=== PATIENT | male | born 1980 | race Caucasian/White ===

== ENCOUNTER 2019-07-18 17:16 | Emergency (ER) | payer SELFPAY ==
[2019-07-18] MEDS ORDERED: Ibuprofen 800 MG TAB ONE (17:40)
[2019-07-18] MEDS ORDERED: Acetaminophen 500 MG TAB ONE (17:40)
[2019-07-18] MEDS ORDERED: Benzonatate 100 MG CAP ONE (17:40)
[2019-07-18] MEDS ORDERED: Oseltamivir 75 MG CAP ONE (17:59)
== END 2019-07-18 18:10 | disposition home or self-care (01) ==
LOC: MADERS 17:16
DX: J10.1 Influenza due to other identified influenza virus with other respiratory manifestations (principal)
CPT/HCPCS: 87804; 99283

== ENCOUNTER 2019-07-22 15:27 | Emergency (ER) | payer SELFPAY ==
[2019-07-22] MEDS ORDERED: Sodium Chloride 0.9% 1,000 ML ONE (15:54)
[2019-07-22] MEDS ORDERED: Ibuprofen 600 MG TAB ONE (15:54)
[2019-07-22] MEDS ORDERED: Ondansetron PF 4 MG/2 ML Vial ONE (15:54)
--- NOTE | 2019-07-22 16:00 | RAD ---
EXAM: Chest 2 views: HISTORY: Cough COMPARISON: 12/11/2005 FINDINGS: There is a normal-sized cardiomediastinal silhouette. There is no evidence of consolidation, mass, or pleural effusion. The bones are unremarkable. IMPRESSION: No evidence of acute cardiopulmonary disease
[2019-07-22 16:11] LABS: #Lymphocytes 1.3 thou/uL (1.20-3.40); #Monocytes 0.8 thou/uL (0.11-0.59); #Neutrophils 9.4 thou/uL (1.40-6.50); %Basophils 0.2 % (0.0-1.0); %Lymphocytes 11.6 % (21.0-51.0); %Monocytes 6.8 % (0.0-10.0); %Neutrophils 81.5 % (42.0-75.0); Hemoglobin 15.8 g/dL (14.0-18.0); Mean Corpuscular HGB CONC 32.4 g/dL (32.0-36.0); Mean Corpuscular Hemoglobin 27.9 pg (27.0-31.0); Mean Corpuscular Volume 86.3 fL (78.0-98.0); Mean Platelet Volume 7.1 fL (7.4-10.4); Platelet Count 232 thou/uL (130-400); RBC Distribution Width 10.7 % (11.5-14.5); Red Blood Cell (RBC) Count 5.65 mill/uL (4.70-6.10); White Blood Cell (WBC) Count 11.6 thou/uL (4.8-10.8)
[2019-07-22 16:21] LABS: Anion Gap 16 mmol/L (10-20); BUN (Urea Nitrogen) 12 mg/dL (8.9-20.6); Calc. Creatinine Clearance 0 mL/min (70-130); Calcium 9.4 mg/dL (7.8-10.44); Carbon Dioxide 27 mmol/L (22-29); Chloride 97 mmol/L (98-107); Estimated GFR-MDRD Greater than 90; Glucose 99 mg/dL (70-105); Potassium 3.5 mmol/L (3.5-5.1); Sodium 136 mmol/L (136-145)
== END 2019-07-22 16:40 | disposition home or self-care (01) ==
LOC: MADERS 15:27
DX: R11.2 Nausea with vomiting, unspecified (principal); R05 Cough
CPT/HCPCS: 71046; 80048; 85025; 96361; 96374; J2405; J7050

== ENCOUNTER 2019-07-26 20:28 | Emergency (ER) | payer SELFPAY ==
[2019-07-26] MEDS ORDERED: Ketorolac Tromethamine 30 MG/ML VIAL ONE (21:15)
[2019-07-26] MEDS ORDERED: Sodium Chloride 0.9% 1,000 ML ONE (21:15)
[2019-07-26 21:30] LABS: Hemoglobin 13.9 g/dL (14.0-18.0); Mean Corpuscular HGB CONC 32.2 g/dL (32.0-36.0); Mean Corpuscular Hemoglobin 28.3 pg (27.0-31.0); Mean Corpuscular Volume 87.8 fL (78.0-98.0); Mean Platelet Volume 6.4 fL (7.4-10.4); Platelet Count 380 thou/uL (130-400); RBC Distribution Width 11.2 % (11.5-14.5); Red Blood Cell (RBC) Count 4.93 mill/uL (4.70-6.10); White Blood Cell (WBC) Count 10.4 thou/uL (4.8-10.8)
[2019-07-26 21:48] LABS: ALT (SGPT) 38 U/L (8-55); AST (SGOT) 23 U/L (5-34); Albumin 3.6 g/dL (3.5-5.0); Alkaline Phosphatase 73 U/L (40-110); Anion Gap 18 mmol/L (10-20); BUN (Urea Nitrogen) 8 mg/dL (8.9-20.6); Bilirubin, Total 0.8 mg/dL (0.2-1.2); Calc. Creatinine Clearance 0 mL/min (70-130); Calcium 9.4 mg/dL (7.8-10.44); Carbon Dioxide 28 mmol/L (22-29); Chloride 96 mmol/L (98-107); Estimated GFR-MDRD Greater than 90; Globulin 3.7 g/dL (2.4-3.5); Glucose 81 mg/dL (70-105); Protein, Total 7.3 g/dL (6.0-8.3); Sodium 139 mmol/L (136-145)
[2019-07-26 22:00] LABS: Band 7 % (5-11); Lymphocytes 17 % (21-51); MDiff Complete? YES; Metamyelocyte 4 % (0-0); Monocytes 8 % (0-10); Neutrophil 64 % (42-75); Nucleated RBC 1 % (0); Platelet Morphology Comment Appears Adequate; RBC Morphology Normal; Small Platelets SLIGHT
[2019-07-26 22:04] LABS: Potassium 2.8 mmol/L (3.5-5.1)
[2019-07-26] MEDS ORDERED: Potassium Chloride 20 MEQ TAB ONE (22:19)
== END 2019-07-26 22:35 | disposition home or self-care (01) ==
LOC: MADERS 20:28
DX: J11.1 Influenza due to unidentified influenza virus with other respiratory manifestations (principal); E86.0 Dehydration; E87.6 Hypokalemia
CPT/HCPCS: 80053; 85025; 96361; 96374; J1885; J7050